=== PATIENT | female | born 1960 | race Caucasian/White ===

== ENCOUNTER → 2017-07-23 | Outpatient (CLI) | payer OTHER | LOC: CIMAGING 07:16 | PROVIDERS: ATTEND Family Medicine | DX: Z12.31 Encounter for screening mammogram for malignant neoplasm of breast (principal) ==

== ENCOUNTER → 2017-07-29 | Outpatient (CLI) | payer OTHER | LOC: CIMAGING 13:15 | PROVIDERS: ATTEND Family Medicine | DX: N63.21 Unspecified lump in the left breast, upper outer quadrant (principal) | CPT/HCPCS: 76641-PO ==

== ENCOUNTER → 2017-08-09 | Outpatient (CLI) | payer OTHER ==
[~2017-08-09] MED LIST: BUPIVACAINE 0.5% 30 ML SDV ONE; LIDOCAINE 1% 300 MG/30 ML SDV ONE; THROMBIN (BOVINE) 5,000 UNIT VIAL TP ONE
== END ==
LOC: FIMAGING 07:28
PROVIDERS: ATTEND Family Medicine
DX: C50.412 Malignant neoplasm of upper-outer quadrant of left female breast (principal); C77.9 Secondary and unspecified malignant neoplasm of lymph node, unspecified; Z17.0 Estrogen receptor positive status [ER+]

== ENCOUNTER → 2017-08-23 | Outpatient (CLI) | payer OTHER ==
[~2017-08-23] MED LIST changes: -BUPIVACAINE 0.5% 30 ML SDV ONE; +GADOBUTROL 10 ML VIAL IVP ONE; -LIDOCAINE 1% 300 MG/30 ML SDV ONE; -THROMBIN (BOVINE) 5,000 UNIT VIAL TP ONE
== END ==
LOC: FIMAGING 11:42
PROVIDERS: ATTEND Internal Medicine Hematology & Oncology
DX: C50.412 Malignant neoplasm of upper-outer quadrant of left female breast (principal)
CPT/HCPCS: 0159T; 77059; A9585; C8908

== ENCOUNTER → 2017-08-24 | Outpatient (CLI) | payer OTHER | LOC: FIMAGING 14:16 | PROVIDERS: ATTEND Surgery | DX: Z45.2 Encounter for adjustment and management of vascular access device (principal) ==

== ENCOUNTER → 2017-08-30 | Outpatient (CLI) | payer OTHER | LOC: BRMIMAGING 09:22 | PROVIDERS: ATTEND Internal Medicine Hematology & Oncology | DX: R92.8 Other abnormal and inconclusive findings on diagnostic imaging of breast (principal); C50.412 Malignant neoplasm of upper-outer quadrant of left female breast | CPT/HCPCS: 76641-PO ==

== ENCOUNTER → 2017-09-09 | Outpatient (CLI) | payer OTHER ==
[~2017-09-09] MED LIST changes: +ALTEPLASE 2 MG VIAL IVP PRN; +BUPIVACAINE 0.5% 30 ML SDV ONE; +FLUMAZENIL 0.5 MG/5 ML MDV IVP PRN; +GLUCAGON HCL 1 MG VIAL IVP PRN; +HEPARIN 10,000 UNIT/10 ML MDV (1,000 UNIT/ML) IVP PRN; +LIDOCAINE 1% 5 ML SDV ONE; +MEPERIDINE 25 MG/ML SYR IVP PRN; +MIDAZOLAM 2 MG/2 ML VIAL IVP PRN; +NA BICARBONATE 50 MEQ/50 ML VIAL ONE; +NALOXONE HCL 0.4 MG/ML INJ IVP PRN; +NS 1,000 ML IV SCH; +ONDANSETRON DISINTEGRATING 4 MG TAB ONE; +PROTAMINE SULFATE 50 MG/5 ML VIAL IVP PRN; +fentaNYL 100 MCG/2 ML INJ IVP PRN
--- NOTE | 2017-09-09 09:43 | PDGENHP ---
History & Physical Chief Complaint: left breast ca History of Present Illness: recent ultrasound bx mass left breast showing infiltrating ductal ca Cardiorespiratory Assessment: heart regular, lungs clear
--- NOTE | 2017-09-09 09:44 | PDPROPOC ---
Sedation Plan of Care Sedation Plan of Care: vital signs stable, mental status noted, patient educated of risks, benefits, alternatives, patient can tolerate sedation ASA Classification: ASA 1 Planned drugs: fentanyl, midazolam Mallampati Score: Class 2 Mallampati Reference Image: Patient passed 3-3-2 rule?: Yes
[2017-09-09 12:13] VITALS: BP 116/74
== END ==
LOC: FIMAGING 08:28
PROVIDERS: ATTEND Internal Medicine Hematology & Oncology
PROC: 0HBU3ZX Excision of Left Breast, Percutaneous Approach, Diagnostic (ICD-10-PCS; principal; 2017-09-09)
DX: D05.02 Lobular carcinoma in situ of left breast (principal)
CPT/HCPCS: A9585; J1642; J2250; J2310; J3010

== ENCOUNTER → 2018-02-22 | Outpatient (CLI) | payer OTHER | LOC: BRMIMAGING 13:16 | PROVIDERS: ATTEND Internal Medicine Hematology & Oncology | DX: Z13.820 Encounter for screening for osteoporosis (principal); M81.0 Age-related osteoporosis without current pathological fracture; Z78.0 Asymptomatic menopausal state ==